=== PATIENT | male | born 1995 | race Caucasian/White ===

== ENCOUNTER 2020-03-27 12:35 | Emergency (ER) | payer SELFPAY ==
[~2020-03-27] VITALS: Ht 165.1 cm; Wt 59.3 kg
[2020-03-27 13:09] VITALS: BP 114/67
--- NOTE | 2020-03-27 14:06 | NUR ---
Patient given discharge instructions and prescription and they have confirmed that they understand the instructions. Patient ambulatory with steady gait from ED with friend to private vehicle.
== END 2020-03-27 14:07 | disposition home or self-care (01) ==
LOC: ED 13:38
DX: K08.89 Other specified disorders of teeth and supporting structures (principal); F17.210 Nicotine dependence, cigarettes, uncomplicated; R22.0 Localized swelling, mass and lump, head
CPT/HCPCS: 99283